=== PATIENT | male | born 1955 | race Caucasian/White ===

== ENCOUNTER 2018-08-19 08:53 | Emergency (ER) | payer MEDICARE ==
[~2018-08-19] VITALS: Wt 90.7 kg
[2018-08-19 09:08] LABS: BASO % 0.3 % (0.0-1.0); EOS # 0.2 10*3/uL (0.0-0.4); EOS % 2.7 % (1.0-4.0); HEMATOCRIT 45.6 % (42.0-52.0); LYMPH # 0.7 10*3/uL (1.3-4.4); LYMPH % 9.1 % (27.0-41.0); MEAN CELL VOLUME 90.3 fl (80.0-94.0); MEAN CORPUSCULAR HGB 31.7 pg (27.0-31.0); MEAN CORPUSCULAR HGB CONC 35.1 g/dl (33.0-37.0); MEAN PLATELET VOLUME 9.6 fl (9.6-12.3); MONO # 0.5 10*3/uL (0.1-1.0); MONO % 6.3 % (3.0-9.0); NEUT # 6.4 10*3/uL (2.3-7.9); NEUT % 81.3 % (47.0-73.0); PLATELET COUNT AUTOMATED 153 10*3/uL (130-400); RED BLOOD COUNT 5.05 10*6/uL (4.50-5.90); RED CELL DISTRI WIDTH 13.2 % (0-14.5); WHITE BLOOD COUNT 7.8 10*3/uL (4.8-10.8)
[2018-08-19 09:18] LABS: BILIRUBIN 1+ (NEGATIVE); BLOOD 3+ (NEGATIVE); CLARITY CLOUDY (CLEAR); COLOR YELLOW (YELLOW); GLUCOSE NEGATIVE (NEGATIVE); KETONE TRACE (NEGATIVE); LEUKO ESTERASE 2+ (NEGATIVE); NITRITE POSITIVE (NEGATIVE); PH 5.5 (5.0-9.0); SPECIFIC GRAVITY >= 1.030 (1.005-1.030); UROBILINOGEN 0.2 E.U./dl (0.2-1.0)
[2018-08-19 09:25] LABS: ALBUMIN 3.5 gm/dl (3.1-4.5); ALKALINE PHOSPHATASE 111 U/L (45-117); BUN 16 mg/dl (7-24); CHLORIDE 104 mmol/L (98-107); CREATININE 0.91 mg/dL (0.70-1.30); POTASSIUM 3.3 mmol/L (3.5-5.1); SGOT/AST 19 IU/L (3-35); SGPT/ALT 27 U/L (12-78); SODIUM 138 mmol/L (136-145); TOTAL PROTEIN 8.2 gm/dL (6.4-8.2)
[2018-08-19 09:28] LABS: BACTERIA 3+; MUCOUS 1+; RBC TNTC rbc/hpf (0-2); WBC TNTC wbc/hpf (0-5)
[2018-08-19] MEDS ORDERED: PYRIDIUM200 M1 PO (09:48)
[2018-08-19] MEDS ORDERED: SEPTDS PO (09:48)
[2018-08-19 10:18] VITALS: BP 134/94
== END 2018-08-19 11:32 | disposition home or self-care (01) ==
LOC: ED 08:53
PROVIDERS: Nurse Practitioner Family
DX: N39.0 Urinary tract infection, site not specified (principal); R03.0 Elevated blood-pressure reading, without diagnosis of hypertension

== ENCOUNTER → 2018-09-13 | Outpatient (CLI) | payer MEDICARE ==
[~2018-09-13] MED LIST: PYRIDIUM200 M1 PO; SEPTDS PO
== END | disposition home or self-care (01) ==
LOC: RAD 11:19
DX: M43.26 Fusion of spine, lumbar region (principal); M16.11 Unilateral primary osteoarthritis, right hip; R10.31 Right lower quadrant pain

== ENCOUNTER → 2018-09-22 | Outpatient (CLI) | payer MEDICARE, BC | END | disposition home or self-care (01) | LOC: US 12:34 | DX: N20.0 Calculus of kidney (principal); R10.32 Left lower quadrant pain ==

== ENCOUNTER → 2019-01-08 | Outpatient (CLI) | payer MEDICARE, BC | END | disposition home or self-care (01) | LOC: RAD 11:48 | DX: M25.512 Pain in left shoulder (principal) ==

== ENCOUNTER 2021-03-09 10:07 | Emergency (ER) | payer MEDICARE, BC ==
[~2021-03-09] VITALS: Ht 175.2 cm; Wt 113.4 kg
[2021-03-09 10:14] VITALS: BP 164/98
[2021-03-09] MEDS ORDERED: HYDROCODONE-AC1 EAC1 PO (13:50)
[2021-03-09] MEDS ORDERED: METHOCARBAMOL500 M1 PO (13:50)
== END 2021-03-09 13:52 | disposition home or self-care (01) ==
LOC: ED 10:07
DX: M54.5 Low back pain (principal); G89.29 Other chronic pain; Z98.890 Other specified postprocedural states; Z79.2 Long term (current) use of antibiotics; Z79.899 Other long term (current) drug therapy

== ENCOUNTER 2021-12-05 20:36 | Emergency (ER) | payer MEDICARE, BC ==
[2021-12-05 20:36] VITALS: BP 0/0
[~2021-12-05 20:36] MED LIST changes: +HYDROCODONE-AC1 EAC1 PO; +METHOCARBAMOL500 M1 PO
== END 2021-12-05 23:53 ==
LOC: ED 20:36
DX: I46.9 Cardiac arrest, cause unspecified (principal)